=== PATIENT | female | born 1970 | race Caucasian/White ===

== ENCOUNTER 2018-10-17 12:59 | Outpatient (CLI) | payer OTHER ==
[~2018-10-17 12:59] MED LIST: LEVAQUIN750 MG PO; PYRIDIUM DS200 MG PO; TOPROL XL25 MG PO; ULTRAM50 MG PO; [UNRECOGNIZED DRUG - OTHER]
== END 2018-10-17 13:03 | disposition home or self-care (01) ==
LOC: SONOGRAMA 12:59 → MAMO-SONO 13:45
DX: M65.811 Other synovitis and tenosynovitis, right shoulder (principal); M65.812 Other synovitis and tenosynovitis, left shoulder; E04.2 Nontoxic multinodular goiter

== ENCOUNTER 2020-05-11 08:03 | Outpatient (CLI) | payer OTHER | END 2020-05-11 08:15 | disposition home or self-care (01) | LOC: TOM 08:03 | PROVIDERS: ATTEND Specialist | DX: K25.9 Gastric ulcer, unspecified as acute or chronic, without hemorrhage or perforation (principal); T81.43XA Infection following a procedure, organ and space surgical site, initial encounter ==

== ENCOUNTER → 2020-08-07 | Outpatient (CLI) | payer OTHER | END | disposition home or self-care (01) | LOC: MAMO-SONO 07:15 → SONOGRAMA 08:21 | PROVIDERS: ATTEND Internal Medicine Gastroenterology | DX: K76.0 Fatty (change of) liver, not elsewhere classified (principal); R10.84 Generalized abdominal pain ==

== ENCOUNTER 2021-03-03 13:39 | Outpatient (CLI) | payer OTHER | END 2021-03-03 13:48 | disposition home or self-care (01) | LOC: SONOGRAMA 13:39 | PROVIDERS: ATTEND Internal Medicine Rheumatology | DX: M65.811 Other synovitis and tenosynovitis, right shoulder (principal) ==

== ENCOUNTER 2023-01-20 06:38 | Emergency (ER) | payer OTHER ==
[~2023-01-20] VITALS: Ht 154.9 cm; Wt 109.3 kg
== END 2023-01-20 11:13 | disposition home or self-care (01) ==
LOC: ER 06:38
DX: S42.215A Unspecified nondisplaced fracture of surgical neck of left humerus, initial encounter for closed fracture (principal); Z88.0 Allergy status to penicillin; Z88.6 Allergy status to analgesic agent; S42.362A Displaced segmental fracture of shaft of humerus, left arm, initial encounter for closed fracture; X50.0XXA Overexertion from strenuous movement or load, initial encounter; X50.9XXA Other and unspecified overexertion or strenuous movements or postures, initial encounter; Y93.89 Activity, other specified; Y92.89 Other specified places as the place of occurrence of the external cause

== ENCOUNTER 2023-01-26 13:29 | Outpatient (CLI) | payer OTHER | END 2023-01-26 13:41 | disposition home or self-care (01) | LOC: RAD 13:29 | PROVIDERS: ATTEND Orthopaedic Surgery | DX: S42.232A 3-part fracture of surgical neck of left humerus, initial encounter for closed fracture (principal) ==

== ENCOUNTER 2023-02-02 12:19 | Outpatient (CLI) | payer OTHER | END 2023-02-02 12:33 | disposition home or self-care (01) | LOC: RAD 12:19 | PROVIDERS: ATTEND Orthopaedic Surgery | DX: S42.232A 3-part fracture of surgical neck of left humerus, initial encounter for closed fracture (principal) ==

== ENCOUNTER 2023-06-12 07:03 | Emergency (ER) | payer OTHER ==
[~2023-06-12] VITALS: Ht 160 cm; Wt 86.2 kg
== END 2023-06-12 11:34 | disposition home or self-care (01) ==
LOC: ER 07:03
DX: M79.674 Pain in right toe(s) (principal); I10 Essential (primary) hypertension; Z88.6 Allergy status to analgesic agent; Z88.0 Allergy status to penicillin; Z91.013 Allergy to seafood

== ENCOUNTER 2023-07-06 07:33 | Outpatient (CLI) | payer OTHER | END 2023-07-06 07:41 | disposition home or self-care (01) | LOC: RAD 07:33 | PROVIDERS: ATTEND Orthopaedic Surgery | DX: S42.32 Transverse fracture of shaft of humerus (principal) ==

== ENCOUNTER 2023-09-14 07:09 | Outpatient (CLI) | payer OTHER | END 2023-09-14 07:19 | disposition home or self-care (01) | LOC: RAD 07:09 | PROVIDERS: ATTEND Orthopaedic Surgery | DX: M25.551 Pain in right hip (principal); M25.552 Pain in left hip; S42.232D 3-part fracture of surgical neck of left humerus, subsequent encounter for fracture with routine healing ==

== ENCOUNTER 2025-01-08 13:37 | Outpatient (CLI) | payer OTHER | END 2025-01-08 14:02 | disposition home or self-care (01) | LOC: TOM 13:37 | PROVIDERS: ATTEND Orthopaedic Surgery | DX: S42.23 3-part fracture of surgical neck of humerus (principal); X58.XXXD Exposure to other specified factors, subsequent encounter ==

== ENCOUNTER 2025-04-18 12:53 | Outpatient (CLI) | payer OTHER | END 2025-04-18 12:58 | disposition home or self-care (01) | LOC: TOM 12:53 | PROVIDERS: ATTEND Orthopaedic Surgery | DX: J45.998 Other asthma (principal); M75.42 Impingement syndrome of left shoulder; M75.112 Incomplete rotator cuff tear or rupture of left shoulder, not specified as traumatic; S42.23 3-part fracture of surgical neck of humerus; X58.XXXD Exposure to other specified factors, subsequent encounter ==